=== PATIENT | female | born 1985 | race Caucasian/White ===

== ENCOUNTER 2016-10-25 12:50 | Inpatient (IN) | payer OTHER ==
[~2016-10-25] VITALS: Ht 160 cm; Wt 54.9 kg
[~2016-10-25 12:50] MED LIST: ATARAX,VISTARIL50 MG PO; ATIVAN0.5 MG PO; DICYCLOMINE HCL20 MG PO; NKHM; ONDANSETRON HYDR4 M1 PO; SINEMET 25-100M1 TAB PO
[2016-10-25 13:35] LABS: BASO % 0.2 % (0.0-1.0); EOS # 0.2 10*3/uL (0.0-0.4); EOS % 1.6 % (1.0-4.0); HEMATOCRIT 44.7 % (37.0-47.0); IRF 4.4 % (2.4-13.3); LYMPH # 2.3 10*3/uL (1.3-4.4); LYMPH % 21.8 % (27.0-41.0); MEAN CELL VOLUME 90.1 fl (81.0-99.0); MEAN CORPUSCULAR HGB 30.2 pg (27.0-31.0); MEAN CORPUSCULAR HGB CONC 33.6 g/dl (33.0-37.0); MEAN PLATELET VOLUME 10.4 fl (9.6-12.3); MONO # 0.7 10*3/uL (0.1-1.0); MONO % 6.5 % (3.0-9.0); NEUT # 7.2 10*3/uL (2.3-7.9); NEUT % 69.6 % (47.0-73.0); PLATELET COUNT AUTOMATED 213 10*3/uL (130-400); RED BLOOD COUNT 4.96 10*6/uL (4.10-5.10); RED CELL DISTRI WIDTH 13.6 % (0-14.5); RET-He 34.3 pg (32.1-37.9); RETICULOCYTE % 1.69 % (0.50-2.50); WHITE BLOOD COUNT 10.4 10*3/uL (4.8-10.8)
[2016-10-25 13:45] VITALS: BP 100/72
[2016-10-25 13:49] LABS: ALBUMIN 4.1 gm/dl (3.1-4.5); ALKALINE PHOSPHATASE 109 U/L (45-117); BILIRUBIN, TOTAL 0.4 mg/dl (0.2-1.0); BUN 7 mg/dl (7-24); CARBON DIOXIDE 28 mmol/L (21-32); CHLORIDE 103 mmol/L (98-107); EST GLOM FILT AFRICAN AMERICAN > 60 ml/min; GLUCOSE 102 mg/dL (65-99); IRON 140 ug/dL (50-170); IRON SATURATION 27 %; POTASSIUM 4.2 mmol/L (3.5-5.1); SGOT/AST 68 IU/L (3-35); SGPT/ALT 81 U/L (12-78); SODIUM 140 mmol/L (136-145); TOTAL PROTEIN 8.8 gm/dL (6.4-8.2); UIBC 370 ug/dL (110-365)
[2016-10-25 14:43] LABS: BILIRUBIN NEGATIVE (NEGATIVE); BLOOD NEGATIVE (NEGATIVE); CLARITY SL CLOUDY (CLEAR); COLOR YELLOW (YELLOW); GLUCOSE NEGATIVE (NEGATIVE); KETONE NEGATIVE (NEGATIVE); LEUKO ESTERASE NEGATIVE (NEGATIVE); NITRITE NEGATIVE (NEGATIVE); PH 6.5 (5.0-9.0); PROTEIN NEGATIVE (NEGATIVE); UROBILINOGEN 0.2 E.U./dl (0.2-1.0)
[2016-10-25 14:53] LABS: BACTERIA TRACE; URINE REFLEX COMMENT NO (NO)
[2016-10-25 16:00] VITALS: BP 108/58
[2016-10-25 20:00] VITALS: BP 102/61
[2016-10-25 20:26] LABS: URINE AMPHETAMINES < 1000 (1000ng/ml); URINE BARBITURATES < 200 (200ng/ml); URINE COCAINE > 300 (300ng/ml)
[2016-10-26] VITALS: BP 100/52; BP 84/48
[2016-10-26 04:00] VITALS: BP 98/50
[2016-10-26 08:00] VITALS: BP 100/67
[2016-10-26 12:00] VITALS: BP 98/72
[2016-10-26 16:00] VITALS: BP 95/58
[2016-10-26 20:00] VITALS: BP 112/73
[2016-10-27] VITALS: BP 118/75
[2016-10-27 08:00] VITALS: BP 101/62
[2016-10-27 12:00] VITALS: BP 127/74
== END 2016-10-27 14:45 | disposition left against medical advice (07) | DRG 894 ==
LOC: 5E 12:50
PROVIDERS: Internal Medicine
DX: F19.939 Other psychoactive substance use, unspecified with withdrawal, unspecified (principal); D50.9 Iron deficiency anemia, unspecified; F41.9 Anxiety disorder, unspecified; F17.210 Nicotine dependence, cigarettes, uncomplicated; F10.10 Alcohol abuse, uncomplicated; F11.23 Opioid dependence with withdrawal; M79.7 Fibromyalgia; Z80.9 Family history of malignant neoplasm, unspecified; Z88.8 Allergy status to other drugs, medicaments and biological substances; Z91.041 Radiographic dye allergy status

== ENCOUNTER 2020-03-28 12:40 | Inpatient (IN) | payer OTHER ==
[~2020-03-28] VITALS: Ht 162.6 cm; Wt 63.2 kg
[2020-03-28 12:47] VITALS: BP 117/68
[2020-03-28 13:51] LABS: BASO % 0.3 % (0.0-1.0); EOS # 0.2 10*3/uL (0.0-0.4); HEMATOCRIT 42.9 % (37.0-47.0); LYMPH # 1.8 10*3/uL (1.3-4.4); LYMPH % 19.7 % (27.0-41.0); MEAN CELL VOLUME 92.9 fl (81.0-99.0); MEAN CORPUSCULAR HGB 30.7 pg (27.0-31.0); MEAN CORPUSCULAR HGB CONC 33.1 g/dl (33.0-37.0); MEAN PLATELET VOLUME 9.4 fl (9.6-12.3); MONO # 0.5 10*3/uL (0.1-1.0); NEUT # 6.6 10*3/uL (2.3-7.9); NEUT % 72.9 % (47.0-73.0); PLATELET COUNT AUTOMATED 246 10*3/uL (130-400); RED BLOOD COUNT 4.62 10*6/uL (4.10-5.10)
[2020-03-28 14:04] LABS: URINE AMPHETAMINES < 1000 (1000ng/ml); URINE BARBITURATES < 200 (200ng/ml); URINE BENZODIAZEPINES > 200 (200ng/ml); URINE CANNABINOIDS (THC) < 50 (50ng/ml); URINE COCAINE > 300 (300ng/ml); URINE METHADONE < 300 (300ng/ml); URINE OPIATES < 300 (300ng/ml)
[2020-03-28 14:05] LABS: URINE PHENCYCLIDINE < 25 (25ng/ml)
[2020-03-28 14:05] LABS: ALBUMIN 4.1 gm/dl (3.1-4.5); ALKALINE PHOSPHATASE 115 U/L (45-117); BUN 8 mg/dl (7-24); CHLORIDE 109 mmol/L (98-107); CREATININE 0.78 mg/dL (0.55-1.02); POTASSIUM 3.8 mmol/L (3.5-5.1); SGOT/AST 104 IU/L (3-35); SGPT/ALT 107 U/L (12-78); SODIUM 139 mmol/L (136-145); TOTAL PROTEIN 8.5 gm/dL (6.4-8.2)
[2020-03-28 14:08] LABS: BACTERIA 4+; BILIRUBIN NEGATIVE (NEGATIVE); BLOOD 3+ (NEGATIVE); CLARITY CLOUDY (CLEAR); COLOR YELLOW (YELLOW); EPITHELIAL CELLS 51-100; GLUCOSE NEGATIVE (NEGATIVE); KETONE NEGATIVE (NEGATIVE); LEUKO ESTERASE 2+ (NEGATIVE); NITRITE POSITIVE (NEGATIVE); RBC 21-30 rbc/hpf (0-2); UROBILINOGEN 0.2 E.U./dl (0.2-1.0); WBC 51-100 wbc/hpf (0-5)
[2020-03-28 14:12] LABS: BETA-HCG, QUANT < 1.0 mIU/mL (1-3)
[2020-03-28 14:26] VITALS: BP 107/72
[2020-03-28 14:50] VITALS: BP 110/63
[2020-03-28 20:00] VITALS: BP 103/68
[2020-03-29] VITALS: BP 102/66
[2020-03-29 07:10] LABS: ALBUMIN 3.2 gm/dl (3.1-4.5); ALKALINE PHOSPHATASE 97 U/L (45-117); BILIRUBIN, DIRECT < 0.1 mg/dL (0.0-0.2); SGOT/AST 74 IU/L (3-35); SGPT/ALT 79 U/L (12-78)
[2020-03-29 08:00] VITALS: BP 90/64
[2020-03-29 12:00] VITALS: BP 105/67
[2020-03-29 16:00] VITALS: BP 91/48
[2020-03-29 20:00] VITALS: BP 107/68
[2020-03-30] VITALS: BP 82/41
[2020-03-30 08:00] VITALS: BP 98/61
[2020-03-30 12:00] VITALS: BP 101/66
[2020-03-30 12:06] LABS: HEP B CORE AB, IGM Negative (Negative)
[2020-03-30 16:00] VITALS: BP 97/64
[2020-03-30 18:51] LABS: HEPATITIS B SURFACE AG Positive (Negative)
[2020-03-30 18:52] LABS: HEPATITIS C VIRUS ANTIBODY >11.0 s/co (0.0-0.9)
[2020-03-30 20:00] VITALS: BP 104/65
[2020-03-31] VITALS: BP 99/63
[2020-03-31 06:41] LABS: BASO % 0.3 % (0.0-1.0); EOS # 0.4 10*3/uL (0.0-0.4); EOS % 6.4 % (1.0-4.0); LYMPH # 2.4 10*3/uL (1.3-4.4); LYMPH % 38.1 % (27.0-41.0); MEAN CORPUSCULAR HGB 30.5 pg (27.0-31.0); MEAN CORPUSCULAR HGB CONC 32.8 g/dl (33.0-37.0); MEAN PLATELET VOLUME 9.8 fl (9.6-12.3); MONO # 0.5 10*3/uL (0.1-1.0); MONO % 7.6 % (3.0-9.0); NEUT % 47.4 % (47.0-73.0); PLATELET COUNT AUTOMATED 181 10*3/uL (130-400); RED CELL DISTRI WIDTH 12.9 % (0-14.5); WHITE BLOOD COUNT 6.3 10*3/uL (4.8-10.8)
[2020-03-31 07:10] LABS: CREATININE 0.68 mg/dL (0.55-1.02)
[2020-03-31 08:00] VITALS: BP 105/71
[2020-03-31] MEDS ORDERED: LORAZEPAM1 MG PO (09:04)
[2020-03-31] MEDS ORDERED: CEFDINIR300 MG PO (09:04)
[2020-03-31] MEDS ORDERED: EPIPEN 2-P0.3 MG/0.3 IJ (11:33)
== END 2020-03-31 11:30 | disposition home or self-care (01) | DRG 773 ==
LOC: ED 12:40 → EDHOLD 13:29 → 4E 13:29
PROVIDERS: Emergency Medicine; Registered Nurse; ADMIT Internal Medicine
DX: F11.23 Opioid dependence with withdrawal (principal); N39.0 Urinary tract infection, site not specified; F14.90 Cocaine use, unspecified, uncomplicated; F13.239 Sedative, hypnotic or anxiolytic dependence with withdrawal, unspecified; B16.9 Acute hepatitis B without delta-agent and without hepatic coma; B18.2 Chronic viral hepatitis C; B96.20 Unspecified Escherichia coli [E. coli] as the cause of diseases classified elsewhere; B95.4 Other streptococcus as the cause of diseases classified elsewhere; F41.9 Anxiety disorder, unspecified; Z90.49 Acquired absence of other specified parts of digestive tract; Z88.5 Allergy status to narcotic agent; Z91.030 Bee allergy status; Z91.041 Radiographic dye allergy status; Z80.9 Family history of malignant neoplasm, unspecified

== ENCOUNTER 2022-10-31 13:51 | Inpatient (IN) | payer OTHER ==
[~2022-10-31] VITALS: Ht 165.1 cm; Wt 56.4 kg
[~2022-10-31 13:51] MED LIST changes: +CEFDINIR300 MG PO; +EPIPEN 2-P0.3 MG/0.3 IJ; +LORAZEPAM1 MG PO
[2022-10-31 14:15] VITALS: BP 111/95
[2022-10-31 16:30] VITALS: BP 110/88
[2022-10-31] MEDS ORDERED: TRAZODONE50 MG PO (16:47)
[2022-10-31] MEDS ORDERED: SUBOXONE 8 MG-1 EACH SL (16:47)
[2022-10-31] MEDS ORDERED: LAMICTAL ODT50 MG MM (16:48)
[2022-10-31] MEDS ORDERED: PROZAC20 MG PO (16:48)
[2022-10-31] MEDS ORDERED: ATIVAN0.5 MG PO (16:49)
[2022-10-31] MEDS ORDERED: NEURONTIN100 MG PO (16:50)
[2022-10-31 17:44] LABS: BASO % 0.3 % (0.0-1.0); EOS # 0.5 10*3/uL (0.0-0.4); EOS % 6.9 % (1.0-4.0); HEMATOCRIT 36.3 % (37.0-47.0); LYMPH # 3.2 10*3/uL (1.3-4.4); LYMPH % 46.3 % (27.0-41.0); MEAN CELL VOLUME 90.8 fl (81.0-99.0); MEAN CORPUSCULAR HGB 29.3 pg (27.0-31.0); MEAN CORPUSCULAR HGB CONC 32.2 g/dl (33.0-37.0); MEAN PLATELET VOLUME 8.9 fl (9.6-12.3); MONO # 0.6 10*3/uL (0.1-1.0); MONO % 9.4 % (3.0-9.0); NEUT # 2.5 10*3/uL (2.3-7.9); PLATELET COUNT AUTOMATED 187 10*3/uL (130-400); RED CELL DISTRI WIDTH 15.9 % (0-14.5); WHITE BLOOD COUNT 6.8 10*3/uL (4.8-10.8)
[2022-10-31 17:56] LABS: ACT PARTIAL THROMBO TIME 27.3 SECONDS (20.0-32.1)
[2022-10-31 18:00] LABS: ALKALINE PHOSPHATASE 119 U/L (46-116); BETA-HCG, QUANT < 3.0 mIU/mL (0-10); BUN 11 mg/dl (9-23); CHLORIDE 103 mmol/L (98-107); LIPASE 25 U/L (12-53); POTASSIUM 3.3 mmol/L (3.4-5.1); SGPT/ALT 29 U/L (10-49); TOTAL PROTEIN 6.5 gm/dL (6.0-8.0)
[2022-10-31 18:41] VITALS: BP 108/86
[2022-10-31 18:44] LABS: BILIRUBIN Negative (Negative); BLOOD Negative (Negative); CLARITY Clear (Clear); COLOR Yellow (Yellow); GLUCOSE Negative (Negative); KETONE Negative (Negative); LEUKO ESTERASE Negative (Negative); NITRITE Negative (Negative); SPECIFIC GRAVITY 1.025 (1.001-1.030)
[2022-10-31 18:51] LABS: URINE AMPHETAMINES Positive (1000ng/ml); URINE BARBITURATES Negative (200ng/ml); URINE BENZODIAZEPINES Positive (200ng/ml); URINE CANNABINOIDS (THC) Positive (50ng/ml); URINE COCAINE Negative (300ng/ml); URINE METHADONE Negative (300ng/ml); URINE OPIATES Negative (300ng/ml); URINE PHENCYCLIDINE Negative (25ng/ml)
[2022-10-31 18:56] LABS: BACTERIA 1+; CALCIUM OXALATE CRYSTALS 1+; RBC 0-2 rbc/hpf (0-2)
[2022-10-31 21:35] VITALS: BP 100/76; BP 100/78
[2022-10-31] MEDS ORDERED: LAMOTRIGINE25 M1 PO (22:27)
[2022-11-01] VITALS: BP 96/75
[2022-11-01 08:00] VITALS: BP 107/66
[2022-11-01 12:00] VITALS: BP 101/64
[2022-11-01 16:00] VITALS: BP 98/60
[2022-11-01 20:00] VITALS: BP 106/63
[2022-11-02] VITALS: BP 94/52
[2022-11-02 01:30] VITALS: BP 102/58
[2022-11-02 08:00] VITALS: BP 113/51
[2022-11-02 12:00] VITALS: BP 113/60
[2022-11-02 16:00] VITALS: BP 106/58
[2022-11-02 20:00] VITALS: BP 102/67
[2022-11-03] VITALS: BP 94/66
[2022-11-03 08:00] VITALS: BP 106/61
[2022-11-03 12:00] VITALS: BP 94/70
[2022-11-03 16:00] VITALS: BP 118/87
== END 2022-11-03 17:30 | disposition home or self-care (01) | DRG 773 ==
LOC: ED 13:51 → EDHOLD 17:44 → 4E 17:44
PROVIDERS: Emergency Medicine; Student in an Organized Health Care Education/Training Program; ADMIT Internal Medicine; ATTEND Internal Medicine
DX: F11.23 Opioid dependence with withdrawal (principal); F15.10 Other stimulant abuse, uncomplicated; B19.10 Unspecified viral hepatitis B without hepatic coma; F41.9 Anxiety disorder, unspecified; F13.10 Sedative, hypnotic or anxiolytic abuse, uncomplicated; D50.9 Iron deficiency anemia, unspecified; E87.6 Hypokalemia; F32.9 Major depressive disorder, single episode, unspecified; F17.200 Nicotine dependence, unspecified, uncomplicated; Z90.49 Acquired absence of other specified parts of digestive tract; Z88.5 Allergy status to narcotic agent; Z91.030 Bee allergy status; Z91.041 Radiographic dye allergy status; Z79.899 Other long term (current) drug therapy